=== PATIENT | female | born 1950 | race Caucasian/White ===

== ENCOUNTER 2018-03-14 08:59 | Emergency (ER) | payer OTHER, MEDICAID ==
[2018-03-14] MEDS: DIPHENHYDRAMINE 25 MG CAP PO (09:50)
[2018-03-14] MEDS: FAMOTIDINE 20 MG TAB PO (09:51)
[2018-03-14] MEDS: predniSONE 20 MG TAB PO (09:51)
== END 2018-03-14 10:34 | disposition home or self-care (01) ==
LOC: FTE 08:59
DX: K13.79 Other lesions of oral mucosa (principal); T78.1XXA Other adverse food reactions, not elsewhere classified, initial encounter
CPT/HCPCS: 87880; 99283

== ENCOUNTER 2018-07-20 05:57 | Emergency (ER) | payer OTHER, MEDICAID ==
[2018-07-20] MEDS: IBUPROFEN 600 MG TAB PO (07:29)
== END 2018-07-20 07:42 | disposition home or self-care (01) ==
LOC: E/R 05:57
DX: J20.9 Acute bronchitis, unspecified (principal); R07.89 Other chest pain
CPT/HCPCS: 71045; 93005; 99284-25